=== PATIENT | female | born 1950 | race Caucasian/White ===

== ENCOUNTER 2024-12-16 12:10 | Emergency (ER) | payer MEDICARE, SELFPAY ==
[2024-12-16 12:15] VITALS: BP 160/109
[2024-12-16 13:20] VITALS: BP 117/82
[2024-12-16 13:22] VITALS: BP 116/73
[2024-12-16 13:30] VITALS: BP 113/74
[2024-12-16 13:45] VITALS: BP 123/87
--- NOTE | 2024-12-16 13:52 | ED.GENMED ---
History of Present Illness
General
Chief Complaint: Musculo-Skeletal Complaint
Source: patient
Time Seen by Provider: 12/16/24 13:42
History of Present Illness
History of Present Illness:
74-year-old female with past medical history of hypothyroidism, currently visiting her brother, lives in [place], for evaluation after she accidentally stumbled on December 11, landed on both of her knees and since that time has developed pain to
both knees but mostly her left hip. She states that after the fall she really did not have very much pain and has been able to ambulate but notes now that when she goes from a laying or sitting position to standing and attempting to ambulate the
pain gets worse. She notes while laying flat she is able to fully range of motion her, knee and remainder of the lower extremity without any significant discomfort. 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 Denies any fevers or
infectious symptoms. No other concerns presently.
Past History
Past History
ED Past Medical History: Hypothyroidism
ED Past Surgical History: Orthopedic
Social History
Tobacco: Non-smoker
Alcohol: None
Drug: None
Personal: Partner
Living: with family
Review of Systems
Review of Systems
All Other Systems: ROS reviewed and negative except as documented in HPI and ROS
Phy Exam
Physical Exam
Physical Exam:
GENERAL: Alert , in no apparent distress
EYE: conjunctiva clear
Head: Normocephalic atraumatic
NECK: Supple,
ENT: mmm.
LUNGS: no acute respiratory distress
NEUROLOGICAL: Alert and oriented
SKIN: Warm and dry, skin intact.
MUSCULOSKELETAL: Left Lower Extremity: no obvious deformity, erythema/edema/ecchymosis/abrasions/lacerations, allows for FROM hip/knee/ankle/foot without pain, Easily palpable pedal/tibial pulses. CR < 2 seconds
PSYCH: Normal and appropriate interaction.
Course
Orders/Labs/Results
Orders:
Orders
05/17/25 12:20
Hip, Left 2-3 Views [CR Hip - LT w/wo Pel 2-3 Vw*] Urgent
Comment:
Reason For Exam: pain
Include a pelvis x-ray?: Yes
12/16/24 12:21
Knee, Right 4 or More Views [CR Knee- Right 4 Or More View*] Urgent
Comment:
Reason For Exam: pain
12/16/24 12:22
CR Knee - Left 4 Or More View* Urgent
Comment:
Reason For Exam: pain
12/16/24 13:59
Oxycodone/Acetaminophen [Percocet 5/325] 1 tablet PO NOW STA
Vital Signs
Initial and Last Documented VS:
Initial Vital Signs
Temp Pulse Resp BP Pulse Ox
98.2 F 117 16 160/109 98
12/16/24 12:15 12/16/24 12:15 12/16/24 12:15 12/16/24 12:15 12/16/24 12:15
Last Documented Vital Signs
Temp Pulse Resp BP Pulse Ox
98.2 F 64 18 123/87 95
12/16/24 12:15 12/16/24 13:20 12/16/24 13:20 12/16/24 13:45 12/16/24 13:43
MDM/Problems Addressed
Differential Diagnosis Includes:
Bursitis, tendinitis, arthritis, given no fever and allows for range of motion I do not have concern for septic joint, minimal concern for fracture or dislocation
MDM/Problems Addressed:
74-year-old female presenting to the ER for evaluation of left hip and bilateral knee pain. Symptoms gradually worse following a fall on December 11. Patient with previous history of total left hip replacement. X-rays of both knees and hips were
ordered from triage. There is no fracture seen. Hardware is intact. Patient returning home to [place] this coming Wednesday, already has an appointment scheduled with her orthopedic doctor for when she home. Has been attempting NSAIDs with
minimal relief. Continue NSAIDs and will add Percocet for breakthrough pain as needed. Advised patient to take a stool softener with this medication. Patient was given x-ray imaging on disc to bring with her to her orthopedic appointment when she
returns home. She is aware of return precautions to the ER.
*Radiology
Radiology exam reviewed: preliminary read by ED provider (No fracture)
*Pulse Oximetry
Patient hypoxic: no
*Critical Care Note
Total Time (30-74mins, 75-104mins- exclusive of procedures): Not Applicable
ED Attending Note
-
Portions of this chart may have been created with voice recognition software.� Occasional wrong word or��sound alike� substitutions may have occurred due to the inherent limitations of voice recognition software.
Discharge Plan
Departure
Patient Disposition: Home (Routine Discharge)
Date of Disposition: 12/16/24
Time of Disposition: 13:52
Patient with high blood pressure during this ER visit?: Yes
Discharge Problem:
Hip pain, left
Instructions: Hip Pain ED
Prescriptions:
New
oxycodone-acetaminophen [Percocet] 5-325 mg tablet
1 tab PO Q6HPRN PRN (Reason: pain) Qty: 8 0RF
No Action
thyroid (pork) [Dillard Thyroid] 90 mg Tablet
90 mg PO DAILY
Referrals:
UNKNOWN - PT DOES,NOT KNOW [Family Provider] -
Interventions
Interventions:
*Risk Screen - Suicide Last Done: 12/16/24 12:15
*General Assessment Last Done: 12/16/24 13:12
*Neglect/Abuse Screening Last Done: 12/16/24 12:15
*ED COVID-19 Vaccine History Last Done: 12/16/24 13:12
*Nursing Disposition Last Done: 12/16/24 14:00
ED-Musculoskeletal Assessment Last Done: 12/16/24 13:12
Discharge Date and Time
Discharge Date/Time: 12/16/24 14:02
Print Language: ESTONIAN
== END 2024-12-16 14:02 | disposition home or self-care (01) ==
LOC: EMR 12:10
PROVIDERS: EMERGENCY PHYSICIAN Student in an Organized Health Care Education/Training Program
DX: M25.552 Pain in left hip (principal); M25.562 Pain in left knee; M25.561 Pain in right knee; R03.0 Elevated blood-pressure reading, without diagnosis of hypertension; W01.0XXA Fall on same level from slipping, tripping and stumbling without subsequent striking against object, initial encounter; E03.9 Hypothyroidism, unspecified
CPT/HCPCS: 99283; 73502; 73564